=== PATIENT | female | born 1970 | race Two or more races ===

== ENCOUNTER 2021-12-25 06:09 | Day surgery (SDC) | payer OTHER ==
[~2021-12-25] VITALS: Ht 170.2 cm; Wt 96.2 kg
[~2021-12-25 06:09] MED LIST: ROSUVASTATIN CA20 MG PO; TAMOXIFEN CITRA20 MG PO; ZOLADEX3.6 MG
== END 2021-12-25 19:25 | disposition home or self-care (01) ==
LOC: CIR.AMB 06:09
PROVIDERS: ATTEND Surgery
DX: Z42.1 Encounter for breast reconstruction following mastectomy (principal); C50.412 Malignant neoplasm of upper-outer quadrant of left female breast; N64.89 Other specified disorders of breast; D24.1 Benign neoplasm of right breast; R59.0 Localized enlarged lymph nodes; Z20.822 Contact with and (suspected) exposure to COVID-19; N62 Hypertrophy of breast; Z86.16 Personal history of COVID-19
CPT/HCPCS: 19301; 19281; 19318; 38525; 78195; A9541; L8699

== ENCOUNTER 2021-12-26 00:15 | Emergency (ER) | payer OTHER ==
[~2021-12-26] VITALS: Ht 170.2 cm; Wt 96.2 kg
== END 2021-12-26 01:38 | disposition home or self-care (01) ==
LOC: ER 00:15
DX: R11.2 Nausea with vomiting, unspecified (principal); R68.83 Chills (without fever); Z20.822 Contact with and (suspected) exposure to COVID-19; Z88.6 Allergy status to analgesic agent

== ENCOUNTER 2021-12-26 15:16 | Emergency (ER) | payer OTHER ==
[~2021-12-26] VITALS: Ht 172.7 cm; Wt 88.5 kg
== END 2021-12-26 19:44 | disposition home or self-care (01) ==
LOC: ER 15:16
DX: R11.2 Nausea with vomiting, unspecified (principal); R68.83 Chills (without fever); Z88.6 Allergy status to analgesic agent

== ENCOUNTER 2022-02-09 20:07 | Emergency (ER) | payer OTHER ==
[~2022-02-09] VITALS: Ht 170.2 cm; Wt 94.3 kg
== END 2022-02-10 02:12 | disposition home or self-care (01) ==
LOC: ER 20:07
DX: N61.0 Mastitis without abscess (principal); Z88.6 Allergy status to analgesic agent; Z86.000 Personal history of in-situ neoplasm of breast